=== PATIENT | female | born 1935 | race Caucasian/White ===

== ENCOUNTER 2017-02-09 11:14 | Emergency (ER) | payer OTHER ==
[~2017-02-09] VITALS: Ht 170.2 cm; Wt 74.0 kg
[2017-02-09 11:19] VITALS: PULSE 91; RESP 16; TEMP 98.2; O2SAT 96
[2017-02-09] MEDS ORDERED: METF1000 PO (11:40)
[2017-02-09] MEDS ORDERED: ATOR20TA15 PO (11:40)
[2017-02-09] MEDS ORDERED: LISI-515 PO (11:40)
--- NOTE | 2017-02-09 12:06 | PD ---
HPI Chief Complaint: Musculoskeletal Complaint Time Seen by Provider: 12:02 Travel History International Travel<30 days: No Contact w/Intl Traveler<30days: No Traveled to known affect area: No History of Present Illness HPI This 82-year-old female is complaining of pain in her left knee. She says that last week she went to bed feeling okay and she woke up one day with swelling and pain in her leg. The leg is been quite painful and hurts to walk on it. She's been taking Tylenol with minimal relief. She went to her doctor who ordered an x-ray. The x-ray showed degenerative changes and effusion. Her physician is supposed to be arranging orthopedic follow-up with the patient came today because she was having a lot of pain and discomfort especially when trying to walk. She is not aware of fever or chills. She has no history of arthritis PFSH Past Medical History High Cholesterol: Yes Diabetes: Yes Patient Takes Glucophage: Yes Hypertension: Yes Influenza Vaccination: No Past Surgical History Appendectomy: Yes Social History Alcohol Use: No Tobacco Use: No Substance Use: No Allergies-Medications (Allergen,Severity, Reaction): Coded Allergies: Penicillins (Verified Allergy, Unknown, Hives, 02/09/17) Sulfa (Sulfonamide Antibiotics) (Verified Allergy, Unknown, Rash, 02/09/17) egg (Verified Allergy, Unknown, Nausea/Vomiting, 02/09/17) ergocalciferol (vitamin D2) (Verified Allergy, Unknown, Rash, 02/09/17) iron (Verified Allergy, Unknown, Nausea/Vomiting, 02/09/17) Reported Meds & Prescriptions Reported Meds & Active Scripts Active Reported Metformin (Metformin HCl) 1,000 Mg Tab 1,000 Mg PO BIDPC With meals Lisinopril 20 Mg Tab 20 Mg PO DAILY Atorvastatin (Atorvastatin Calcium) 20 Mg Tab 20 Mg PO HS Review of Systems General / Constitutional: No: Fever, Chills Eyes: No: Diploplia, Blurred Vision HENT: No: Headaches, Vertigo Cardiovascular: No: Chest Pain or Discomfort Respiratory: No: Cough, Shortness of Breath Gastrointestinal: No: Vomiting, Diarrhea Genitourinary: No: Urgency, Frequency Musculoskeletal: Positive: Myalgias, Pain Skin: No Rash, No Itching Neurologic: No: Weakness, Dizziness Hematologic/Lymphatic: No: Easy Bruising Physical Exam Narrative GENERAL: Well-developed female SKIN: Focused skin assessment warm/dry. HEAD: Atraumatic. Normocephalic. EYES: Pupils equal and round. No scleral icterus. No injection or drainage. ENT: No nasal bleeding or discharge. Mucous membranes pink and moist. NECK: Trachea midline. No JVD. GASTROINTESTINAL: Abdomen soft, non-tender, nondistended. Hepatic and splenic margins not palpable. MUSCULOSKELETAL: No obvious deformities. No clubbing. No cyanosis. No edema. There is no swelling of the left knee. It is not red. It is not hot to palpation. There is a lot of pain with any attempt to move the knee. NEUROLOGICAL: Awake and alert. No obvious cranial nerve deficits. Motor grossly within normal limits. Normal speech. PSYCHIATRIC: Appropriate mood and affect; insight and judgment normal. Data Data Last Documented VS Vital Signs Date Time Temp Pulse Resp B/P Pulse Ox O2 Delivery O2 Flow Rate FiO2 02/09/17 12:50 80 16 161/72 96 02/09/17 11:19 98.2 Orders Complete Blood Count With Diff (02/09/17 12:03) Comprehensive Metabolic Panel (02/09/17 12:03) Prothrombin Time / Inr (Pt) (02/09/17 12:03) Act Partial Throm Time (Ptt) (02/09/17 12:03) C-Reactive Protein (Crp) (02/09/17 12:03) Westergren Sedimentation Rate (02/09/17 12:03) Ketorolac Inj (Toradol Inj) (02/09/17 12:15) Triamcinolone Inj (Kenalog-40 Inj) (02/09/17 12:15) Bupivacaine Pf 0.25% Inj (Marcaine Pf 0. (02/09/17 12:15) Bupivacaine Pf 0.25% Inj (Marcaine Pf 0. (02/09/17 12:30) Fluid Culture And Gram Stain (02/09/17 13:13) Synovial Fl Cell Count + Diff (02/09/17 13:17) Synovial Fluid Crystals (02/09/17 13:17) Labs Laboratory Tests Test 02/09/17 12:21 White Blood Count 8.9 TH/MM3 Red Blood Count 4.21 MIL/MM3 Hemoglobin 11.8 GM/DL Hematocrit 35.3 % Mean Corpuscular Volume 84.0 FL Mean Corpuscular Hemoglobin 28.1 PG Mean Corpuscular Hemoglobin 33.4 % Concent Red Cell Distribution Width 14.9 % Platelet Count 309 TH/MM3 Mean Platelet Volume 7.6 FL Neutrophils (%) (Auto) 72.9 % Lymphocytes (%) (Auto) 19.9 % Monocytes (%) (Auto) 5.0 % Eosinophils (%) (Auto) 1.7 % Basophils (%) (Auto) 0.5 % Neutrophils # (Auto) 6.5 TH/MM3 Lymphocytes # (Auto) 1.8 TH/MM3 Monocytes # (Auto) 0.4 TH/MM3 Eosinophils # (Auto) 0.2 TH/MM3 Basophils # (Auto) 0.0 TH/MM3 CBC Comment DIFF FINAL Differential Comment Erythrocyte Sedimentation Rate 32 mm/hr Prothrombin Time 10.6 SEC Prothromb Time International 1.0 RATIO Ratio Activated Partial 28.5 SEC Thromboplast Time Sodium Level 138 MEQ/L Potassium Level 3.6 MEQ/L Chloride Level 104 MEQ/L Carbon Dioxide Level 25.5 MEQ/L Anion Gap 9 MEQ/L Blood Urea Nitrogen 17 MG/DL Creatinine 0.97 MG/DL Estimat Glomerular Filtration 55 ML/MIN Rate Random Glucose 138 MG/DL Calcium Level 8.7 MG/DL Total Bilirubin 0.6 MG/DL Aspartate Amino Transf 23 U/L (AST/SGOT) Alanine Aminotransferase 28 U/L (ALT/SGPT) Alkaline Phosphatase 124 U/L Total Protein 7.3 GM/DL Albumin 3.3 GM/DL MDM Medical Decision Making Medical Screen Exam Complete: Yes Emergency Medical Condition: Yes Medical Record Reviewed: Yes Differential Diagnosis Differential includes arthritis flare, fracture, septic joint Narrative Course There is no fever, there is no warmth or erythema of the joint suggestive of sepsis. Patient is quite uncomfortable with pain. She did not report any relief with Toradol. White count is normal. INR is normal. Aspiration of the joint has been done. Patient be placed in a knee immobilizer and released Procedures Procedure Narrative Arthrocentesis was discussed with the patient and she was agreeable. The knee was anesthetized with Marcaine. An 18-gauge needle was inserted into the joint space and approximately 10 cc of fluid removed. It was slightly blood-tinged. 1 cc of Kenalog and 2 cc of Marcaine were instilled into the joint Diagnosis Primary Impression: Arthritis of left knee Additional Instructions: Take ibuprofen and/or Tylenol for pain, follow-up with orthopedic surgery Disposition: 01 DISCHARGE HOME Condition: Stable Ted Goldstein MD Feb 09, 2017 12:05
[2017-02-09] MEDS ORDERED: BUPIVACAINE HCL PF 0.25% 10 ML VIAL INFIL ONE (12:15)
[2017-02-09] MEDS ORDERED: TRIAMCINOLONE ACETONIDE 40 MG/ML VIAL I-ARTICULR ONE (12:15)
[2017-02-09] MEDS ORDERED: KETOROLAC TROMETHAMINE 30 MG/ML (IVP) VIAL IV PUSH ONE (12:15)
[2017-02-09] MEDS ORDERED: BUPIVACAINE HCL PF 0.25% 30 ML VIAL INFIL ONE (12:30)
[2017-02-09 12:38] LABS: AUTOMATED NEUTROPHIL # 6.5 TH/MM3 (1.8-7.7); BASOPHIL % 0.5 % (0.0-2.0); EOSINOPHIL # 0.2 TH/MM3 (0-0.4); EOSINOPHIL % 1.7 % (0.0-4.0); HEMATOCRIT 35.3 % (35.0-46.0); HEMO FLAGS DIFF FINAL; LYMPH % 19.9 % (9.0-44.0); LYMPHOCYTE # 1.8 TH/MM3 (1.0-4.8); MEAN CORPUSCULAR HEMOGLOBIN 28.1 PG (27.0-34.0); MEAN CORPUSCULAR HGB CONC 33.4 % (32.0-36.0); NEUT % 72.9 % (16.0-70.0); PLATELET COUNT 309 TH/MM3 (150-450); RED BLOOD COUNT 4.21 MIL/MM3 (4.00-5.30); RED CELL DISTRIBUTION WIDTH 14.9 % (11.6-17.2); WHITE BLOOD COUNT 8.9 TH/MM3 (4.0-11.0)
[2017-02-09 12:48] LABS: CHLORIDE 104 MEQ/L (98-107); POTASSIUM 3.6 MEQ/L (3.5-5.1); SODIUM (NA) 138 MEQ/L (136-145)
[2017-02-09 12:50] VITALS: BP 161/72; PULSE 80; RESP 16; O2SAT 96
[2017-02-09 12:51] LABS: ANION GAP 9 MEQ/L (5-15); APTT (PATIENT) 28.5 SEC (24.3-30.1); BICARBONATE 25.5 MEQ/L (21.0-32.0); PROTHROMBIN TIME - PATIENT 10.6 SEC (9.8-11.6)
[2017-02-09 12:52] LABS: BLOOD UREA NITROGEN 17 MG/DL (7-18)
[2017-02-09 12:54] LABS: ALT (GPT) 28 U/L (10-53); AST (GOT) 23 U/L (15-37)
[2017-02-09 12:55] LABS: GLOMERULAR FILTRATION RATE 55 ML/MIN (>89)
[2017-02-09 12:56] LABS: TOTAL BILIRUBIN ADULT 0.6 MG/DL (0.2-1.0)
[2017-02-09 12:57] LABS: ALKALINE PHOSPHATASE 124 U/L (45-117)
[2017-02-09 14:04] VITALS: RESP 18
[2017-02-09 15:07] LABS: WBC, SYNOVIAL FLUID 10 /MM3 (0-200)
== END 2017-02-09 14:05 | disposition home or self-care (01) ==
LOC: PHED 11:14
DX: M17.12 Unilateral primary osteoarthritis, left knee (principal); M25.462 Effusion, left knee; E11.9 Type 2 diabetes mellitus without complications; I10 Essential (primary) hypertension; E78.00 Pure hypercholesterolemia, unspecified; Z79.84 Long term (current) use of oral hypoglycemic drugs
CPT/HCPCS: 20610; 80053; 85025; 85610; 85652; 85730; 86140; 87070; 87205; 89051; 89060; 96374; 99284; J1885; J3301; L1830

== ENCOUNTER 2017-02-16 08:14 | Observation (INO) | payer OTHER ==
[~2017-02-16 08:14] MED LIST: ATOR20TA15 PO; LISI-515 PO; METF1000 PO
[2017-02-16 08:22] VITALS: BP 159/67; PULSE 81; RESP 12; TEMP 97.5; O2SAT 98
[2017-02-16] MEDS ORDERED: MOBI7.5T PO (08:33)
[2017-02-16] MEDS ORDERED: ACETAMINOPHEN/HYDROcodone 325 MG/10 MG TAB PO ONE (09:00)
--- NOTE | 2017-02-16 09:01 | PD ---
HPI . Knee pain Chief Complaint: Pain: Acute or Chronic Time Seen by Provider: 08:50 Travel History International Travel<30 days: No Contact w/Intl Traveler<30days: No Traveled to known affect area: No History of Present Illness HPI This patient presents with chief complaint of knee pain. Onset was 3 weeks ago. The onset was sudden. She states that she was fine when she went to bed one night and that she could not walk the next day because of knee pain. She states that both knees hurt the left is worse than the right. Pain is exacerbated by walking. He has been unrelieved by Tylenol, ibuprofen and no back. Pain has also been unrelieved by a steroid injection. She rates her pain 10/10. PFSH Past Medical History High Cholesterol: Yes Diabetes: Yes Patient Takes Glucophage: Yes Hypertension: Yes ?: Not Past Surgical History Appendectomy: Yes Social History Alcohol Use: No Tobacco Use: No Substance Use: No Allergies-Medications (Allergen,Severity, Reaction): Coded Allergies: Penicillins (Verified Allergy, Unknown, Hives, 02/16/17) Sulfa (Sulfonamide Antibiotics) (Verified Allergy, Unknown, Rash, 02/16/17) egg (Verified Allergy, Unknown, Nausea/Vomiting, 02/16/17) ergocalciferol (vitamin D2) (Verified Allergy, Unknown, Rash, 02/16/17) iron (Verified Allergy, Unknown, Nausea/Vomiting, 02/16/17) Reported Meds & Prescriptions Reported Meds & Active Scripts Active [place] (Hydrocodone-Acetaminophen) 5-325 mg Tab 1 Tab PO Q4H PRN Reported Mobic (Meloxicam) 7.5 Mg Tab 7.5 Mg PO DAILY Metformin (Metformin HCl) 1,000 Mg Tab 1,000 Mg PO BIDPC 1 IN THE AM AND 1/2 AT NIGHT With meals Lisinopril 20 Mg Tab 20 Mg PO DAILY Atorvastatin (Atorvastatin Calcium) 20 Mg Tab 20 Mg PO HS Review of Systems Except as stated in HPI: all other systems reviewed are Neg General / Constitutional: No: Fever, Chills Musculoskeletal: Positive: Arthralgias, Limited ROM Physical Exam Narrative GENERAL: Awake and alert and in no acute distress. SKIN: Warm and dry. No erythema of the skin of the knees. HEAD: Atraumatic. Normocephalic. EYES: Pupils equal and round. NECK: Trachea midline. CARDIOVASCULAR: Regular rate and rhythm. RESPIRATORY: No accessory muscle use. MUSCULOSKELETAL: "bony" knees. Diffusely tender. No effusion. NEUROLOGICAL: Awake and alert. No obvious cranial nerve deficits. Motor grossly within normal limits. Normal speech. PSYCHIATRIC: Appropriate mood and affect; insight and judgment normal. Data Data Last Documented VS Vital Signs Date Time Temp Pulse Resp B/P (MAP) Pulse Ox O2 Delivery O2 Flow Rate FiO2 02/16/17 10:30 77 18 143/64 (90) 97 Room Air 02/16/17 08:22 97.5 Orders Orders Acetamin-Hydrocod 325-10 Mg ([place] 10-32 (02/16/17 09:00) Complete Blood Count With Diff (02/16/17 10:19) Basic Metabolic Panel (Bmp) (02/16/17 10:19) Westergren Sedimentation Rate (02/16/17 10:19) C-Reactive Protein (Crp) (02/16/17 10:19) Labs Laboratory Tests Test 02/16/17 10:36 White Blood Count 14.0 TH/MM3 Red Blood Count 3.99 MIL/MM3 Hemoglobin 11.4 GM/DL Hematocrit 34.1 % Mean Corpuscular Volume 85.5 FL Mean Corpuscular Hemoglobin 28.5 PG Mean Corpuscular Hemoglobin Concent 33.3 % Red Cell Distribution Width 15.6 % Platelet Count 369 TH/MM3 Mean Platelet Volume 7.8 FL Neutrophils (%) (Auto) 71.5 % Lymphocytes (%) (Auto) 20.6 % Monocytes (%) (Auto) 6.1 % Eosinophils (%) (Auto) 1.3 % Basophils (%) (Auto) 0.5 % Neutrophils # (Auto) 10.0 TH/MM3 Lymphocytes # (Auto) 2.9 TH/MM3 Monocytes # (Auto) 0.9 TH/MM3 Eosinophils # (Auto) 0.2 TH/MM3 Basophils # (Auto) 0.1 TH/MM3 CBC Comment DIFF FINAL Differential Comment MDM Medical Decision Making Medical Screen Exam Complete: Yes Emergency Medical Condition: Yes Medical Record Reviewed: Yes (this patient had arthrocentesis of her left knee done on 02/09. The fluid had 10 white cells and no crystals. She has also had outpatient x-rays which showed degenerative changes.) Differential Diagnosis Differential diagnosis of joint pain includes but is not limited to arthritis, gout, sprain/strain, fracture, dislocation Narrative Course This patient presents with bilateral knee pain, left worse than right. She has already been adequately evaluated for her knee pain. She has arthritis. I will give her a dose of [place]. This patient is still unable to stand following [place]. Case management was consult. This patient does meet criteria for admission to observation. Diagnosis Primary Impression: Bilateral knee pain Qualified Codes: M25.561 - Pain in right knee; M25.562 - Pain in left knee Additional Impression: Degenerative arthritis Qualified Codes: M17.0 - Bilateral primary osteoarthritis of knee Admitting Information Admitting Physician Requests: Observation Patient Instructions: Arthritis (ED), General Instructions, Narcotic given in the ED Additional Instructions: Continue the meloxicam. Add [place]. See your doctor within the next couple of days. Med/Other Pt SpecificInfo: Prescription(s) given Condition: Stable Stephanie Argueta MD Feb 16, 2017 09:01
[2017-02-16] MEDS ORDERED: NORC5TAB PO (09:19)
[2017-02-16 10:30] VITALS: BP 143/64; PULSE 77; RESP 18; O2SAT 97
[2017-02-16 10:50] LABS: BASOPHIL # 0.1 TH/MM3 (0-0.2); BASOPHIL % 0.5 % (0.0-2.0); EOSINOPHIL # 0.2 TH/MM3 (0-0.4); EOSINOPHIL % 1.3 % (0.0-4.0); HEMATOCRIT 34.1 % (35.0-46.0); HEMO FLAGS DIFF FINAL; LYMPH % 20.6 % (9.0-44.0); LYMPHOCYTE # 2.9 TH/MM3 (1.0-4.8); MEAN CELL VOLUME 85.5 FL (80.0-100.0); MEAN CORPUSCULAR HEMOGLOBIN 28.5 PG (27.0-34.0); MEAN CORPUSCULAR HGB CONC 33.3 % (32.0-36.0); MONO % 6.1 % (0.0-8.0); NEUT % 71.5 % (16.0-70.0); PLATELET COUNT 369 TH/MM3 (150-450); RED BLOOD COUNT 3.99 MIL/MM3 (4.00-5.30); RED CELL DISTRIBUTION WIDTH 15.6 % (11.6-17.2)
[2017-02-16 11:13] LABS: ANION GAP 6 MEQ/L (5-15); BICARBONATE 23.8 MEQ/L (21.0-32.0); BLOOD UREA NITROGEN 26 MG/DL (7-18); CHLORIDE 110 MEQ/L (98-107); GLOMERULAR FILTRATION RATE 57 ML/MIN (>89); POTASSIUM 4.4 MEQ/L (3.5-5.1); SODIUM (NA) 140 MEQ/L (136-145)
--- NOTE | 2017-02-16 11:37 | HHI.HP ---
[facility] Service [facility] Primary Care Physician Santana Neely MD Admission Diagnosis intractable knee pain Diagnoses: Chief Complaint: Bilateral knee pain Travel History International Travel<30 Days: No Contact w/Intl Traveler <30 Da: No Traveled to Known Affected Are: No History of Present Illness Ms. Parish is a pleasant 82-year-old female with a history of diabetes , hyperlipidemia, hypertension who presents to the emergency department on 2016 due to sharp knee pain bilaterally. About 2 weeks ago, patient experienced sudden onset of left-sided knee pain. Over time she started having right-sided knee pain as well. She reports no swelling of the knees, nor redness, no fever or chills. She saw her primary care doctor who obtained an x- ray which showed possible fluid. Patient was given Tylenol for symptomatic treatment. Later on she also received intra-articular steroid in her left knee. She has also tried NSAIDs including Motrin and meloxicam. None of these conservative management relieved her symptoms which prompted her to seek medical attention today. Additionally she feels her feet are numb. Patient denies any chest pain, shortness of breath, fever or chills. Denies any changes in bowel habits. However recently she did have frequent urination but no dysuria or hematuria. She has never had gout. Review of Systems Except as stated in HPI: all other systems reviewed are Neg Past Family Social History Past Medical History Hyperlipidemia Hypertension Diabetes mellitus Past Surgical History Appendectomy Reported Medications [place] (Hydrocodone-Acetaminophen) 5-325 mg Tab 1 Tab PO Q4H PRN Reported Mobic (Meloxicam) 7.5 Mg Tab 7.5 Mg PO DAILY Metformin (Metformin HCl) 1,000 Mg Tab 1,000 Mg PO BIDPC 1 IN THE AM AND 1/2 AT NIGHT With meals Lisinopril 20 Mg Tab 20 Mg PO DAILY Atorvastatin (Atorvastatin Calcium) 20 Mg Tab 20 Mg PO HS Allergies: Coded Allergies: Penicillins (Verified Allergy, Unknown, Hives, 02/16/17) Sulfa (Sulfonamide Antibiotics) (Verified Allergy, Unknown, Rash, 02/16/17) egg (Verified Allergy, Unknown, Nausea/Vomiting, 02/16/17) ergocalciferol (vitamin D2) (Verified Allergy, Unknown, Rash, 02/16/17) iron (Verified Allergy, Unknown, Nausea/Vomiting, 02/16/17) Family History No family history of Alzheimer's or Parkinson's. Social History Patient denies using alcohol, tobacco or illicit drugs. Physical Exam Vital Signs Vital Signs Date Time Temp Pulse Resp B/P (MAP) Pulse Ox O2 Delivery O2 Flow Rate FiO2 02/16/17 10:30 77 18 143/64 (90) 97 Room Air 02/16/17 08:22 97.5 81 12 159/67 (97) 98 Physical Exam GENERAL: This is a well-nourished, well-developed patient, in no apparent distress. SKIN: No rashes, ecchymoses or lesions. Warm and dry. HEAD: Atraumatic. Normocephalic. No temporal or scalp tenderness. EYES: Pupils equal round and reactive. No injection or drainage. ENT: Nose without bleeding, purulent drainage or septal hematoma. Airway patent. NECK: Trachea midline. No lymphadenopathy. Supple, nontender, no meningeal signs. CARDIOVASCULAR: Regular rate and rhythm without murmurs, gallops, or rubs. No JVD. RESPIRATORY: Clear to auscultation. Breath sounds equal bilaterally. No wheezes , rales, or rhonchi. GASTROINTESTINAL: Abdomen soft, non-tender, nondistended. No guarding. MUSCULOSKELETAL: Extremities without clubbing, cyanosis, or edema. No erythema around knees. Excruciating pain on both active and passive range of motion of the knees. Pain on palpation around the patella on the left. NEUROLOGICAL: Awake and alert. Cranial nerves II through XII intact. No focal neurological deficits. Normal speech. Laboratory Laboratory Tests Test 02/16/17 10:36 White Blood Count 14.0 Red Blood Count 3.99 Hemoglobin 11.4 Hematocrit 34.1 Mean Corpuscular Volume 85.5 Mean Corpuscular Hemoglobin 28.5 Mean Corpuscular Hemoglobin Concent 33.3 Red Cell Distribution Width 15.6 Platelet Count 369 Mean Platelet Volume 7.8 Neutrophils (%) (Auto) 71.5 Lymphocytes (%) (Auto) 20.6 Monocytes (%) (Auto) 6.1 Eosinophils (%) (Auto) 1.3 Basophils (%) (Auto) 0.5 Neutrophils # (Auto) 10.0 Lymphocytes # (Auto) 2.9 Monocytes # (Auto) 0.9 Eosinophils # (Auto) 0.2 Basophils # (Auto) 0.1 CBC Comment DIFF FINAL Differential Comment Blood Urea Nitrogen 26 Creatinine 0.93 Random Glucose 141 Calcium Level 9.1 Sodium Level 140 Potassium Level 4.4 Chloride Level 110 Carbon Dioxide Level 23.8 Anion Gap 6 Estimat Glomerular Filtration Rate 57 C-Reactive Protein LESS THAN 0.29 Result Diagram: 02/16/17 1036 02/16/17 1036 Caprini VTE Risk Assessment Caprini VTE Risk Assessment: Mod/High Risk (score >= 2) Caprini Risk Assessment Model Point Value = 1 Point Value = 2 Point Value = 3 Point Value = 5 Age 41-60 Minor surgery BMI > 25 kg/m2 Swollen legs Varicose veins or History of unexplained or recurrent spontaneous Oral contraceptives or hormone replacement Sepsis (< 1 month) Serious lung disease, including pneumonia (< 1 month) Abnormal pulmonary function Acute myocardial infarction Congestive heart failure (< 1 month) History of inflammatory bowel disease Medical patient at bed rest Age 61-74 Arthroscopic surgery Major open surgery (> 45 min) Laparoscopic surgery (> 45 min) Malignancy Confined to bed (> 72 hours) Immobilizing plaster cast Central venous access Age >= 75 History of VTE Family history of VTE Factor V Leiden Prothrombin [id number] Lupus anticoagulant Anticardiolipin antibodies Elevated serum homocysteine Heparin-induced thrombocytopenia Other congenital or acquired thrombophilia Stroke (< 1 month) Elective arthroplasty Hip, pelvis, or leg fracture Acute spinal cord injury (< 1 month) Prophylaxis Regimen Total Risk Factor Score Risk Level Prophylaxis Regimen 0-1 Low Early ambulation 2 Moderate Order ONE of the following: *Sequential Compression Device (SCD) *Heparin 5000 units SQ BID 3-4 Higher Order ONE of the following medications: *Heparin 5000 units SQ TID *Enoxaparin/Lovenox 40 mg SQ daily (WT < 150 kg, CrCl > 30 mL/min) *Enoxaparin/Lovenox 30 mg SQ daily (WT < 150 kg, CrCl > 10-29 mL/min) *Enoxaparin/Lovenox 30 mg SQ BID (WT < 150 kg, CrCl > 30 mL/min) AND/OR *Sequential Compression Device (SCD) 5 or more Highest Order ONE of the following medications: *Heparin 5000 units SQ TID (Preferred with Epidurals) *Enoxaparin/Lovenox 40 mg SQ daily (WT < 150 kg, CrCl > 30 mL/min) *Enoxaparin/Lovenox 30 mg SQ daily (WT < 150 kg, CrCl > 10-29 mL/min) *Enoxaparin/Lovenox 30 mg SQ BID (WT < 150 kg, CrCl > 30 mL/min) AND *Sequential Compression Device (SCD) Assessment and Plan Problem List: (1) Hyperlipidemia ICD Code: E78.5 - Hyperlipidemia, unspecified (2) Hypertension ICD Code: I10 - Essential (primary) hypertension (3) Diabetes mellitus ICD Code: E11.9 - Type 2 diabetes mellitus without complications (4) Bilateral knee pain ICD Code: M25.561 - Pain in right knee; M25.562 - Pain in left knee Status: Acute Assessment and Plan Ms. Parish is a pleasant 82-year-old female with a history of hyperlipidemia, hypertension, diabetes mellitus who presents to the emergency department today due to 2 week duration of bilateral knee pain. No erythema, swelling. Knee pain started suddenly. - Bilateral knee pain - Probably due to osteoarthritis. - We'll manage pain with Tylenol, Percocet 5-325 every 6 hours when necessary , Dilaudid 0.5 mg 4 hours for breakthrough. - Orthopedic consultation pending. - Bowel regimen PRN. - Diabetes mellitus - Patient takes metformin at home which we'll hold for now. - We'll keep low sliding scale insulin on board. If needed consider long- acting insulin at bedtime. - Hypertension - continue lisinopril 20 mg by mouth daily - Hyperlipidemia - continue atorvastatin 20 mg by mouth daily at bedtime. Full code. Lovenox Problem Qualifiers (1) Bilateral knee pain: Qualified Codes: M25.561 - Pain in right knee; M25.562 - Pain in left knee Sandro Urrutia DO Feb 16, 2017 11:37
[2017-02-16] MEDS ORDERED: NALOXONE HCL 0.4 MG/ML AMP IV PRN (11:45)
[2017-02-16] MEDS ORDERED: ACETAMINOPHEN 325 MG TAB PO PRN (11:45)
[2017-02-16] MEDS ORDERED: BISACODYL 10 MG SUPP RECTAL PRN (11:45)
[2017-02-16] MEDS ORDERED: MAGNESIUM HYDROXIDE SUSP 30 ML CUP PO PRN (11:45)
[2017-02-16] MEDS ORDERED: LACTULOSE SYRUP 20 GM/30 ML CUP PO PRN (11:45)
[2017-02-16] MEDS ORDERED: SODIUM CHLORIDE 0.9% FLUSH 10 ML FLUSH IV FLUSH PRN (11:45)
[2017-02-16] MEDS ORDERED: SENNOSIDES 8.6 MG TAB PO PRN (11:45)
[2017-02-16] MEDS ORDERED: ONDANSETRON HCL 4 MG/2 ML VIAL IVP PRN (11:45)
[2017-02-16] MEDS ORDERED: HYDROmorphone HCL PF 1 MG/ML VIAL IV PUSH PRN (11:45)
[2017-02-16] MEDS ORDERED: DEXTROSE 50% IN WATER 50 ML VIAL(D50) IV PRN (12:30)
[2017-02-16] MEDS ORDERED: GLUCAGON 1 MG/ML VIAL OTHER PRN (12:30)
[2017-02-16 15:41] LABS: BACTERIA, URINE MANY /hpf; BLOOD, URINE TRACE (NEG); COMMENT (UR) CULTURE INDICATED; CULTURE IF INDICATED CULTURE INDICATED; GLUCOSE,URINE NEG (NEG); KETONE, URINE NEG (NEG); NITRITE,URINE POS (NEG); PH, URINE 5.5 (5.0-8.5); SQUAMOUS EPITHELIAL CELL URINE 1 /hpf (0-5); URINE COLOR YELLOW (YELLW/STRAW)
[2017-02-16] MEDS: ENOXAPARIN SODIUM 40 MG/0.4 ML SYRINGE SQ SCH (16:00)
[2017-02-16] MEDS: INSULIN ASPART SUPPLEMENTAL SCALE SQ SCH ×2 (16:00→21:00)
[2017-02-16] MEDS: oxyCODONE/ACETAMINOPHEN 5 MG/325 MG TAB PO PRN (16:49)
--- NOTE | 2017-02-16 18:08 | RADRPT ---
EXAM DATE/TIME: 02/16/2017 15:22 CORRECTION Corrected on: February 16, 2017; [facility] COMPARISON: No previous studies available for comparison. INDICATIONS : Knee pain for 3 weeks. MEDICAL HISTORY : Hypertension. Diabetes mellitus type 2. SURGICAL HISTORY : Plate in elbow. ENCOUNTER: Initial ACUITY: 3 weeks PAIN SCORE: 5/10 LOCATION: Left knee. TECHNIQUE: Multiplanar, multisequence MRI examination was performed without contrast. FINDINGS: CRUCIATE LIGAMENTS: ACL and PCL are intact. MENISCI: There is a meniscal tear involving the posterior horn of the medial meniscus extending to inferior leung rface. The lateral meniscus appears grossly intact. COLLATERAL LIGAMENTS: MCL and LCL complexes are intact. BONE/CARTILAGE: Prominent bone marrow edema with fracture involving the posterior lateral femoral condyle. The fractu re of the posterior lateral femoral condyle appears to be nondisplaced. There is also diffuse bone ma rrow edema involving the lateral tibial plateau with most likely microfracture. Possible osteochondri tis dissecans along the articular surface of the lateral tibial plateau versus a cartilaginous defec t involving the articular surface.. There is bone marrow edema involving the inferior body of the pat sole. This is most likely a bone contusion. MISCELLANEOUS: Moderate joint effusion. Nonspecific edema in the surrounding soft tissues at the level of the knee j oint. CONCLUSION: 1. Nondisplaced fracture with surrounding bone marrow edema involving the posterior lateral femoral c ondyle. 2. Diffuse bone marrow edema involving the lateral tibial plateau with probable microfractures. 3. Moderate joint effusion. 4. Oblique tear involving the posterior horn of the medial meniscus. Armando Newton MD on February 16, 2017 at 18:02 Board Certified Radiologist. This report was verified electronically. Armando Newton MD on February 16, 2017 at 18:14 Board Certified Radiologist. This report was verified electronically.
--- NOTE | 2017-02-16 18:14 | RADRPT ---
EXAM DATE/TIME: 02/16/2017 15:45 [facility] COMPARISON: No previous studies available for comparison. INDICATIONS : Knee pain for 3 weeks. MEDICAL HISTORY : Hypertension. Diabetes mellitus type 2. SURGICAL HISTORY : Plate in elbow. ENCOUNTER: Initial ACUITY: 3 weeks PAIN SCORE: 5/10 LOCATION: Right knee. TECHNIQUE: Multiplanar, multisequence MRI examination was performed without contrast. FINDINGS: CRUCIATE LIGAMENTS: ACL and PCL are intact. MENISCI: There is oblique tear through the posterior horn of the medial meniscus extending down to the inferio r surface. The lateral meniscus appears to be grossly intact. COLLATERAL LIGAMENTS: MCL and LCL complexes are intact. BONE/CARTILAGE: Nondisplaced fracture with bone marrow edema involving the lateral femoral condyle. Fracture is just above the articulating surface. There is bone marrow edema in the lateral tibial plateau with a carti laginous defect along the articulating surface of the lateral tibial plateau. There appears to be a p rominent bone marrow contusion and/or microfracture involving the mid to lower body of the patella. MISCELLANEOUS: Moderate joint effusion. Nonspecific soft tissue swelling in the soft tissues around the knee joint. The quadriceps tendon and patellar tendon are grossly intact. CONCLUSION: 1. Nondisplaced fracture with bone marrow edema involving the lateral femoral condyle. 2. Bone marrow edema involving the lateral tibial plateau with cartilaginous defect along the articul ar surface. 3. Prominent bone marrow bruising and/or microfracture involving the mid to lower body of the patella . 4. Oblique tear involving the posterior horn medial meniscus. 5. Moderate joint effusion. Armando Newton MD on February 16, 2017 at 18:07 Board Certified Radiologist. This report was verified electronically.
[2017-02-16 20:42] VITALS: BP 160/72; PULSE 80; RESP 18; TEMP 98; O2SAT 95
[2017-02-16] MEDS: DOCUSATE SODIUM 50 MG/SENNA 8.6 MG TAB PO SCH (22:51)
[2017-02-16] MEDS: SODIUM CHLORIDE 0.9% FLUSH 10 ML FLUSH IV FLUSH SCH (22:52)
[2017-02-16] MEDS: ATORVASTATIN 20 MG TAB PO SCH (22:52)
[2017-02-17 00:17] VITALS: BP 180/77; PULSE 71; RESP 18; TEMP 98.3; O2SAT 95
[2017-02-17 04:47] VITALS: BP 196/77; PULSE 73; RESP 16; TEMP 98.2; O2SAT 95
[2017-02-17] MEDS: oxyCODONE/ACETAMINOPHEN 5 MG/325 MG TAB PO PRN ×4 (04:56→22:49)
[2017-02-17] MEDS: ENALAPRILAT 2.5 MG/2 ML VIAL IV PUSH PRN ×2 (05:33→21:59)
[2017-02-17] MEDS: INSULIN ASPART SUPPLEMENTAL SCALE SQ SCH ×4 (07:00→22:05)
[2017-02-17 08:36] VITALS: BP 181/79; PULSE 71; RESP 18; TEMP 97.7; O2SAT 98
[2017-02-17] MEDS ORDERED: LISINOPRIL 20 MG TAB PO SCH (09:00)
--- NOTE | 2017-02-17 09:51 | HHI.PR ---
Subjective Remarks Follow-up for bilateral knee pain. Patient seen with her daughter at bedside. The patient woke up with knee pain about 2 weeks ago, no injury. She states the pain in her knees is manageable until she tries to move them. She does state that the Percocet helps some, but the pain does persist. She states she was seen by orthopedics, Dr. Tomlinson, earlier who told her he was going to start her on arthritis medication and recommended she get out of bed to the chair. She states that she has been holding her urine and more recently because his been harder to move. She does state that she has DME at home, but she is no longer able to get out of bed without assistance secondary to knee pain. No improvement with recent intra-articular steroid injection. Agreeable to SNF placement. Objective Vitals Vital Signs Date Time Temp Pulse Resp B/P (MAP) Pulse Ox O2 Delivery O2 Flow Rate FiO2 02/17/17 08:36 97.7 71 18 181/79 (113) 98 02/17/17 05:37 18 02/17/17 04:47 98.2 73 16 196/77 (116) 95 02/17/17 00:17 98.3 71 18 180/77 (111) 95 02/16/17 20:42 98.0 80 18 160/72 (101) 95 02/16/17 12:40 02/16/17 10:30 77 18 143/64 (90) 97 Room Air Result Diagram: 02/16/17 1036 02/16/17 1036 Imaging Last Impressions Knee MRI 02/16/17 0000 Signed Impressions: Service Date/Time: Thursday, February 16, 2017 15:45 - CONCLUSION: 1. Nondisplaced fracture with bone marrow edema involving the lateral femoral condyle. 2. Bone marrow edema involving the lateral tibial plateau with cartilaginous defect along the articular surface. 3. Prominent bone marrow bruising and/or microfracture involving the mid to lower body of the patella. 4. Oblique tear involving the posterior horn medial meniscus. 5. Moderate joint effusion. Armando Newton MD Objective Remarks GENERAL: Well-developed well-nourished. In no acute distress. SKIN: Warm and dry. No lesions noted. HEENT: Normocephalic. Pupils equal and round. Mucous membranes pink and moist. CARDIOVASCULAR: Regular rate and rhythm. No murmur appreciated. RESPIRATORY: No accessory muscle use. Clear to auscultation. Breath sounds equal bilaterally. GASTROINTESTINAL: Abdomen soft, non-tender, nondistended. Bowel sounds x4. MUSCULOSKELETAL: Severe bilateral knee pain with minimal ROM. No significant effusion on exam. No clubbing or cyanosis. No edema. NEUROLOGICAL: Awake and alert. No focal neurological deficits. Moves upper and lower extremities spontaneously. Normal speech. PSYCHIATRIC: Appropriate mood and affect; insight and judgment normal. A/P Problem List: (1) Hyperlipidemia ICD Code: E78.5 - Hyperlipidemia, unspecified Status: Chronic (2) Hypertension ICD Code: I10 - Essential (primary) hypertension Status: Acute (3) Diabetes mellitus ICD Code: E11.9 - Type 2 diabetes mellitus without complications Status: Chronic (4) Bilateral knee pain ICD Code: M25.561 - Pain in right knee; M25.562 - Pain in left knee Status: Acute Assessment and Plan 82-year-old female with a history of hyperlipidemia, hypertension, diabetes mellitus who presented due to 2 week duration of bilateral knee pain. No erythema, swelling. Knee pain started suddenly. - Bilateral knee pain Reviewed: Lateral knee MRI show nondisplaced fractures of the lateral femoral condyles; joint effusions, bone marrow edema, microfractures, meniscal tears. - Pain management, increase Percocet 5-325 2 every 4 hours as needed, continue Dilaudid 0.5 mg 4 hours for breakthrough. - Orthopedics consulted, appreciate input, activity per orthopedic. - Bowel regimen PRN. - PT consulted - Anticipate patient will need rehabilitation placement, case management consulted - UTI - UA with evidence of UTI. WBC 14. Afebrile. - Start Macrobid and follow-up urine culture - Diabetes mellitus - Patient takes metformin at home which we'll hold for now. - We'll keep low sliding scale insulin on board. - Hypertension - chronic, uncontrolled/accelerated - Increase lisinopril to 40 mg daily - IV Vasotec as needed - Monitor and adjust medications as needed - Hyperlipidemia - continue atorvastatin 20 mg by mouth daily at bedtime. DVT prophylaxis - Lovenox Discharge Planning Follow-up orthopedic and PT recommendations. Follow-up urine culture. Monitor BP. Plan for discharge to SNF when improved. Problem Qualifiers (1) Hyperlipidemia: Qualified Codes: E78.5 - Hyperlipidemia, unspecified (2) Hypertension: Qualified Codes: I10 - Essential (primary) hypertension (3) Diabetes mellitus: (4) Bilateral knee pain: Qualified Codes: M25.561 - Pain in right knee; M25.562 - Pain in left knee Omid Lovett Feb 17, 2017 09:51
--- NOTE | 2017-02-17 10:59 | MB ---
cc: CIRILO MULLIGAN DATE OF CONSULTATION 02/17/[address] De La O REASON FOR CONSULTATION Bilateral knee pain with inability to ambulate. HISTORY This patient is an 82-year-old female with a known history of diabetes mellitus, hyperlipidemia and hypertension. The patient noted approximately two weeks ago she began having difficulty walking. She fell she "slept wrong." She has had such progressive discomfort that she saw her primary care physician. Apparently x-rays were ordered and she was advised to seek follow up with an orthopedic physician. The patient has had such difficulty with ambulation, she presented to the emergency room. She denies any fevers or chills or redness. She is having difficulty with ambulation. She tried Motrin and meloxicam apparently without significant help. She was admitted to the medical service and I have been asked see her in consultation regarding the same. PAST MEDICAL HISTORY 1. Hypertension 2. Hyperlipidemia 3. Diabetes mellitus PAST SURGICAL HISTORY Appendectomy. MEDICATIONS 1. Walters 2. Mobic 3. Metformin 4. Lisinopril 5. Atorvastatin ALLERGIES PENICILLIN, SULFA, EGG, VITAMIN D2 AND IRON. FAMILY HISTORY No history of Alzheimer's or Parkinson's disease. SOCIAL HISTORY Denies alcohol, tobacco or illicit drugs. REVIEW OF SYSTEMS Negative except for HPI. PHYSICAL EXAMINATION This is an alert cooperative female. She is seen with her daughter. She indicates she has been in bed now for almost two weeks. EXTREMITIES: Examination of the lower extremity, hip and ankle examination is normal. Both knees show a 10 degrees flexion contracture, flexes to about 70 degrees, pain with range of motion. Mild swelling of both knees. Mild effusion. No instability. Strength appears to be normal. Dorsalis pedis 1+. MRI scan of both knees are very symmetrical indicating evidence of subchondral fracture of the lateral tibial plateau likely insufficiency fracture related to osteoarthritis. There is evidence on the left knee of a linear fracture through the posterior femoral condyle without displacement. Some cartilaginous changes were seen. There is evidence of a degenerative posterior medial meniscus tear of both knees. IMPRESSION 1. Ostearthritis both knees. 2. Fatigue fracture bilateral lateral tibial plateau. 3. Degenerative tear medial meniscus, bilateral 4. Fracture left posterior lateral femoral condyle PLAN This is an usual presentation. Likely this is degenerative in nature. The patient indicates that she has not had a traumatic injury. I find it hard to believe that she did not have some element of a traumatic injury. At any rate, surgical treatment is not recommended at this time. A range of motion brace of the left knee is recommended. The right knee should be treated with range of motion as tolerated. I recommend that she take diclofenac 75 mg p.o. b.i.d. I am resistant on giving cortisone injections in light of a fracture and history of diabetes mellitus. I will allow this patient to be partial weightbearing with a walker and I encouraged her to be bed to chair in ambulation. This patient is at risk, and the surgical treatment if this displaces. This patient is probably going to be prior to be candidate for rehabilitation. I doubt she will be able to live alone at home and I do not see this changing in the next 24-48 hours. I will follow her the office in about three weeks or so. Repeat x-ray will be obtained at that time. This patient may become a candidate for knee replacement surgery if we find that the degenerative condition does not respond to conservative care. MD ELIZABETH Vargas/IRIS /9:32 AM /10:42 AM AWA
[2017-02-17] MEDS: LISINOPRIL 20 MG TAB PO SCH (11:19)
[2017-02-17] MEDS: DOCUSATE SODIUM 50 MG/SENNA 8.6 MG TAB PO SCH ×2 (11:19→21:59)
[2017-02-17] MEDS: SODIUM CHLORIDE 0.9% FLUSH 10 ML FLUSH IV FLUSH SCH ×2 (11:20→21:59)
[2017-02-17 12:29] VITALS: BP 171/72; PULSE 67; RESP 20; TEMP 98.6; O2SAT 97
[2017-02-17] MEDS: amLODIPine BESYLATE 5 MG TAB PO SCH (14:56)
[2017-02-17] MEDS: NITROFURANTOIN MONOHYD MACROCR 100 MG CAP PO SCH ×2 (14:56→18:00)
[2017-02-17] MEDS: ENOXAPARIN SODIUM 40 MG/0.4 ML SYRINGE SQ SCH (14:59)
[2017-02-17] MEDS: DICLOFENAC SODIUM 75 MG DELAYED RELEASE TAB PO SCH ×2 (15:40→22:49)
[2017-02-17 16:17] VITALS: BP 163/71; PULSE 72; RESP 23; TEMP 97.9; O2SAT 95
[2017-02-17 20:18] VITALS: BP 162/73; PULSE 70; RESP 18; TEMP 98.2; O2SAT 95
[2017-02-17 21:03] LABS: BASOPHIL # 0.1 TH/MM3 (0-0.2); BASOPHIL % 0.5 % (0.0-2.0); EOSINOPHIL # 0.3 TH/MM3 (0-0.4); EOSINOPHIL % 2.2 % (0.0-4.0); HEMATOCRIT 34.5 % (35.0-46.0); HEMO FLAGS DIFF FINAL; LYMPH % 24.4 % (9.0-44.0); LYMPHOCYTE # 2.9 TH/MM3 (1.0-4.8); MEAN CELL VOLUME 86.5 FL (80.0-100.0); MEAN CORPUSCULAR HEMOGLOBIN 27.8 PG (27.0-34.0); MEAN CORPUSCULAR HGB CONC 32.1 % (32.0-36.0); MONO % 6.6 % (0.0-8.0); NEUT % 66.3 % (16.0-70.0); PLATELET COUNT 343 TH/MM3 (150-450); RED BLOOD COUNT 3.99 MIL/MM3 (4.00-5.30); RED CELL DISTRIBUTION WIDTH 16.2 % (11.6-17.2); WHITE BLOOD COUNT 12.1 TH/MM3 (4.0-11.0)
[2017-02-17 21:07] LABS: ANION GAP 8 MEQ/L (5-15); AST (GOT) 15 U/L (15-37); BICARBONATE 22.7 MEQ/L (21.0-32.0); BLOOD UREA NITROGEN 20 MG/DL (7-18); CHLORIDE 105 MEQ/L (98-107); GLOMERULAR FILTRATION RATE 48 ML/MIN (>89); POTASSIUM 4.6 MEQ/L (3.5-5.1); SODIUM (NA) 136 MEQ/L (136-145)
[2017-02-17 21:18] LABS: ALKALINE PHOSPHATASE 111 U/L (45-117); ALT (GPT) 24 U/L (10-53); TOTAL BILIRUBIN ADULT 0.5 MG/DL (0.2-1.0)
[2017-02-17] MEDS: ATORVASTATIN 20 MG TAB PO SCH (21:59)
[2017-02-17] MEDS: FAMOTIDINE 20 MG TAB PO SCH (21:59)
[2017-02-18 02:59] VITALS: BP 138/63; PULSE 65; RESP 18; TEMP 98.4; O2SAT 97
[2017-02-18] MEDS: INSULIN ASPART SUPPLEMENTAL SCALE SQ SCH ×2 (06:31→14:00)
[2017-02-18 08:35] VITALS: BP 144/86; PULSE 67; RESP 16; TEMP 98.1; O2SAT 97
[2017-02-18] MEDS: NITROFURANTOIN MONOHYD MACROCR 100 MG CAP PO SCH (11:10)
[2017-02-18] MEDS: LISINOPRIL 20 MG TAB PO SCH (11:12)
[2017-02-18] MEDS: amLODIPine BESYLATE 5 MG TAB PO SCH (11:14)
[2017-02-18] MEDS: oxyCODONE/ACETAMINOPHEN 5 MG/325 MG TAB PO PRN (11:14)
[2017-02-18] MEDS: FAMOTIDINE 20 MG TAB PO SCH (11:15)
[2017-02-18] MEDS: SODIUM CHLORIDE 0.9% FLUSH 10 ML FLUSH IV FLUSH SCH (11:17)
[2017-02-18] MEDS: DOCUSATE SODIUM 50 MG/SENNA 8.6 MG TAB PO SCH (11:28)
[2017-02-18] MEDS: DICLOFENAC SODIUM 75 MG DELAYED RELEASE TAB PO SCH (11:29)
[2017-02-18] MEDS ORDERED: CIPROFLOXACIN 250 MG TAB PO SCH (11:45)
--- NOTE | 2017-02-18 11:55 | HHI.PR ---
Subjective Remarks Follow-up for bilateral knee pain/fractures. The patient reports that she worked with PT yesterday. She states the Percocet is helping the pain. Denies any urinary symptoms. She states her blood pressure was high last night, but has been doing better today. Awaiting insurance authorization for SNF. Objective Vitals Vital Signs Date Time Temp Pulse Resp B/P (MAP) Pulse Ox O2 Delivery O2 Flow Rate FiO2 02/18/17 08:35 98.1 67 16 144/86 (105) 97 02/18/17 02:59 98.4 65 18 138/63 (88) 97 02/17/17 23:25 18 02/17/17 20:18 98.2 70 18 162/73 (102) 95 02/17/17 16:17 97.9 72 23 163/71 (101) 95 02/17/17 12:29 98.6 67 20 171/72 (105) 97 Result Diagram: 02/17/17201902/17/172019 Imaging Last Impressions Knee MRI 02/16/17 0000 Signed Impressions: Service Date/Time: Thursday, February 16, 2017 15:45 - CONCLUSION: 1. Nondisplaced fracture with bone marrow edema involving the lateral femoral condyle. 2. Bone marrow edema involving the lateral tibial plateau with cartilaginous defect along the articular surface. 3. Prominent bone marrow bruising and/or microfracture involving the mid to lower body of the patella. 4. Oblique tear involving the posterior horn medial meniscus. 5. Moderate joint effusion. Armando Newton MD Objective Remarks GENERAL: Well-developed well-nourished. In no acute distress. SKIN: Warm and dry. No lesions noted. HEENT: Normocephalic. Pupils equal and round. Mucous membranes pink and moist. CARDIOVASCULAR: Regular rate and rhythm. No murmur appreciated. RESPIRATORY: No accessory muscle use. Clear to auscultation. Breath sounds equal bilaterally. GASTROINTESTINAL: Abdomen soft, non-tender, nondistended. Bowel sounds x4. MUSCULOSKELETAL: Severe bilateral knee pain with minimal ROM. No significant effusion on exam. No clubbing or cyanosis. No edema. NEUROLOGICAL: Awake and alert. No focal neurological deficits. Moves upper and lower extremities spontaneously. Normal speech. PSYCHIATRIC: Appropriate mood and affect; insight and judgment normal. A/P Problem List: (1) Hyperlipidemia ICD Code: E78.5 - Hyperlipidemia, unspecified Status: Chronic (2) Hypertension ICD Code: I10 - Essential (primary) hypertension Status: Acute (3) Diabetes mellitus ICD Code: E11.9 - Type 2 diabetes mellitus without complications Status: Chronic (4) Bilateral knee pain ICD Code: M25.561 - Pain in right knee; M25.562 - Pain in left knee Status: Acute Assessment and Plan 82-year-old female with a history of hyperlipidemia, hypertension, diabetes mellitus who presented due to 2 week duration of bilateral knee pain. No erythema, swelling. Knee pain started suddenly. - Bilateral knee pain Reviewed: Lateral knee MRI show nondisplaced fractures of the lateral femoral condyles; joint effusions, bone marrow edema, microfractures, meniscal tears. - Pain management, continue Percocet 5-325 every 4 hours as needed, continue Dilaudid 0.5 mg 4 hours if needed for breakthrough. - Orthopedics consulted, recommended diclofenac, protected weightbearing, and outpatient follow-up - Bowel regimen PRN. - PT consulted, recommends SNF, case management arranging - UTI - UA with evidence of UTI. WBC mildly elevated. Afebrile. Urine culture growing Klebsiella. - Three-day course of Cipro based on sensitivities and patient's allergies. - Diabetes mellitus - Patient takes metformin at home which we'll hold for now. - We'll keep low sliding scale insulin on board. - Hypertension - chronic, better controlled today - Increased lisinopril to 40 mg daily - Added amlodipine 5 mg daily - IV Vasotec as needed - Monitor and adjust medications as needed - Hyperlipidemia - continue atorvastatin 20 mg by mouth daily at bedtime. DVT prophylaxis - Lovenox Discharge Planning The patient is medically stable at this time. Discharge planning to SNF when arranged. Problem Qualifiers (1) Hyperlipidemia: Qualified Codes: E78.5 - Hyperlipidemia, unspecified (2) Hypertension: Qualified Codes: I10 - Essential (primary) hypertension (3) Diabetes mellitus: (4) Bilateral knee pain: Qualified Codes: M25.561 - Pain in right knee; M25.562 - Pain in left knee Omid Lovett Feb 18, 2017 11:55
[2017-02-18 13:28] VITALS: BP 171/72; PULSE 73; RESP 16; TEMP 98; O2SAT 98
[2017-02-18] MEDS ORDERED: amLODIPine BESYLATE 5 MG TAB PO ONE (14:45)
[2017-02-18] MEDS ORDERED: CIPR250T52 PO (15:14)
[2017-02-18] MEDS ORDERED: DICL75TA PO (15:14)
[2017-02-18] MEDS ORDERED: OXYC1TAB63 PO (15:14)
[2017-02-18] MEDS ORDERED: AMLO10 PO (15:14)
[2017-02-18] MEDS ORDERED: LISI-515 PO (15:14)
[2017-02-18] MEDS ORDERED: FAMO20TA2 PO (15:15)
--- NOTE | 2017-02-18 15:21 | HHI.DS ---
Discharge Summary Admission Date Feb 16, 2017 at 11:34 Discharge Date: Feb 18, 2017 Admitting Diagnosis intractable knee pain (1) Hyperlipidemia ICD Code: E78.5 - Hyperlipidemia, unspecified Diagnosis: Secondary Status: Chronic (2) Hypertension ICD Code: I10 - Essential (primary) hypertension Diagnosis: Secondary Status: Acute (3) Diabetes mellitus ICD Code: E11.9 - Type 2 diabetes mellitus without complications Diagnosis: Secondary Status: Chronic (4) Bilateral knee pain ICD Code: M25.561 - Pain in right knee; M25.562 - Pain in left knee Diagnosis: Principal Status: Acute Procedures None Brief History - From Admission Ms. Parish is a pleasant 82-year-old female with a history of diabetes , hyperlipidemia, hypertension who presents to the emergency department on 2016 due to sharp knee pain bilaterally. About 2 weeks ago, patient experienced sudden onset of left-sided knee pain. Over time she started having right-sided knee pain as well. She reports no swelling of the knees, nor redness, no fever or chills. She saw her primary care doctor who obtained an x- ray which showed possible fluid. Patient was given Tylenol for symptomatic treatment. Later on she also received intra-articular steroid in her left knee. She has also tried NSAIDs including Motrin and meloxicam. None of these conservative management relieved her symptoms which prompted her to seek medical attention today. Additionally she feels her feet are numb. Patient denies any chest pain, shortness of breath, fever or chills. Denies any changes in bowel habits. However recently she did have frequent urination but no dysuria or hematuria. She has never had gout. CBC/BMP: 02/17/17201902/17/172019 Significant Findings Laboratory Tests Test 02/16/17 10:36 02/16/17 14:57 02/17/17 20:20 White Blood Count 14.0 TH/MM3 (4.0-11.0) 12.1 TH/MM3 (4.0-11.0) Red Blood Count 3.99 MIL/MM3 (4.00-5.30) 3.99 MIL/MM3 (4.00-5.30) Hemoglobin 11.4 GM/DL (11.6-15.3) 11.1 GM/DL (11.6-15.3) Hematocrit 34.1 % (35.0-46.0) 34.5 % (35.0-46.0) Neutrophils (%) (Auto) 71.5 % (16.0-70.0) Neutrophils # (Auto) 10.0 TH/MM3 (1.8-7.7) 8.0 TH/MM3 (1.8-7.7) Erythrocyte Sedimentation Rate 32 mm/hr (0-30) Blood Urea Nitrogen 26 MG/DL (7-18) 20 MG/DL (7-18) Random Glucose 141 MG/DL (74-106) 200 MG/DL (74-106) Chloride Level 110 MEQ/L (98-107) Estimat Glomerular Filtration Rate 57 ML/MIN (>89) 48 ML/MIN (>89) Uric Acid 7.1 MG/DL (2.6-6.0) Urine Turbidity HAZY (CLEAR) Urine Occult Blood TRACE (NEG) Urine Nitrite POS (NEG) Urine Leukocyte Esterase LARGE (NEG) Urine RBC 7 /hpf (0-3) Urine Bacteria MANY /hpf (NONE) Creatinine 1.09 MG/DL (0.50-1.00) Albumin 3.0 GM/DL (3.4-5.0) Calcium Level 8.3 MG/DL (8.5-10.1) Imaging Last Impressions Knee MRI 02/16/17 0000 Signed Impressions: Service Date/Time: Thursday, February 16, 2017 15:45 - CONCLUSION: 1. Nondisplaced fracture with bone marrow edema involving the lateral femoral condyle. 2. Bone marrow edema involving the lateral tibial plateau with cartilaginous defect along the articular surface. 3. Prominent bone marrow bruising and/or microfracture involving the mid to lower body of the patella. 4. Oblique tear involving the posterior horn medial meniscus. 5. Moderate joint effusion. Armando Newton MD PE at Discharge GENERAL: Well-developed well-nourished. In no acute distress. SKIN: Warm and dry. No lesions noted. HEENT: Normocephalic. Pupils equal and round. Mucous membranes pink and moist. CARDIOVASCULAR: Regular rate and rhythm. No murmur appreciated. RESPIRATORY: No accessory muscle use. Clear to auscultation. Breath sounds equal bilaterally. GASTROINTESTINAL: Abdomen soft, non-tender, nondistended. Bowel sounds x4. MUSCULOSKELETAL: Severe bilateral knee pain with minimal ROM. No significant effusion on exam. No clubbing or cyanosis. No edema. NEUROLOGICAL: Awake and alert. No focal neurological deficits. Moves upper and lower extremities spontaneously. Normal speech. PSYCHIATRIC: Appropriate mood and affect; insight and judgment normal. Pt update on day of discharge SNF placement arranged. BP has been labile and remains a bit elevated, amlodipine dose increased. Hospital Course 82-year-old female with a history of hyperlipidemia, hypertension, diabetes mellitus who presented due to 2 week duration of bilateral knee pain. No erythema, swelling. Knee pain started suddenly. - Bilateral knee pain Reviewed: Lateral knee MRI show nondisplaced fractures of the lateral femoral condyles; joint effusions, bone marrow edema, microfractures, meniscal tears. - Pain management, continue Percocet 5-325 every 4 hours as needed - Orthopedics consulted, recommended diclofenac, protected weightbearing, and outpatient follow-up - PT consulted, recommends SNF, case management arranged - UTI - UA with evidence of UTI. WBC mildly elevated. Afebrile. Urine culture growing Klebsiella. - Three-day course of Cipro based on sensitivities and patient's allergies. - Hypertension - Increased lisinopril to 40 mg daily - Added amlodipine 10 mg daily Pt Condition on Discharge: Stable Discharge Disposition: Discharge to SNF Discharge Time: > 30 minutes Discharge Instructions DIET: Follow Instructions for: Heart Healthy Diet, Diabetic Diet Activities you can perform: Regular-No Restrictions Follow up Referrals: Orthopedics - 3 Weeks with Sundeep Tomlinson MD PCP Follow-up - 2-3 Days New Medications: Amlodipine (Norvasc) 10 Mg Tab 10 MG PO DAILY for Blood Pressure Management, #30 TAB Ciprofloxacin (Cipro) 250 Mg Tab 250 MG PO Q12HR for UTI, #[address] (Diclofenac Sodium DR) 75 Mg Tabdr 75 MG PO Q12HR for Inflammation, #14 TAB Famotidine (Famotidine) 20 Mg Tab 10 MG PO BID for stomach protection, #14 TAB Lisinopril (Lisinopril) 20 Mg Tab 40 MG PO DAILY for Blood Pressure Management, #30 TAB Oxycodone-Acetaminophen (Oxycodone-Acetaminophen) 5-325 mg Tab 1 TAB PO Q4H PRN for PAIN SCALE 5 TO 10, #18 TAB Continued Medications: Atorvastatin (Atorvastatin) 20 Mg Tab 20 MG PO HS for Cholesterol Management, #30 TAB 0 Refills Metformin (Metformin) 1,000 Mg Tab 1000 MG PO BIDPC for Blood Sugar Management, #60 TAB 0 Refills 1 IN THE AM AND 1/2 AT NIGHT With meals Discontinued Medications: Lisinopril (Lisinopril) 20 Mg Tab 20 MG PO DAILY, #30 TAB 0 Refills Meloxicam (Mobic) 7.5 Mg Tab 7.5 MG PO DAILY for Pain, TAB 0 Refills Omid Lovett Feb 18, 2017 15:21
[2017-02-18] MEDS ORDERED: FAMOTIDINE 20 MG TAB PO SCH (21:00)
== END 2017-02-18 16:44 | disposition home or self-care (01) ==
LOC: NEPC 08:14 → NEDA 11:34 → NEPHCDU 12:50
PROVIDERS: ADMIT Family Medicine; ATTEND Family Medicine
DX: M25.561 Pain in right knee (principal); M25.562 Pain in left knee; S72.424A Nondisplaced fracture of lateral condyle of right femur, initial encounter for closed fracture; S72.425A Nondisplaced fracture of lateral condyle of left femur, initial encounter for closed fracture; S83.242A Other tear of medial meniscus, current injury, left knee, initial encounter; M25.462 Effusion, left knee; M25.461 Effusion, right knee; S83.241A Other tear of medial meniscus, current injury, right knee, initial encounter; M84.361A Stress fracture, right tibia, initial encounter for fracture; M84.362A Stress fracture, left tibia, initial encounter for fracture; N39.0 Urinary tract infection, site not specified; B96.1 Klebsiella pneumoniae [K. pneumoniae] as the cause of diseases classified elsewhere; R20.0 Anesthesia of skin; R60.0 Localized edema; I10 Essential (primary) hypertension; E78.5 Hyperlipidemia, unspecified; E78.00 Pure hypercholesterolemia, unspecified; E11.9 Type 2 diabetes mellitus without complications; M17.0 Bilateral primary osteoarthritis of knee; Z79.899 Other long term (current) drug therapy; Z79.84 Long term (current) use of oral hypoglycemic drugs; X58.XXXA Exposure to other specified factors, initial encounter
CPT/HCPCS: 73721; 80048; 80053; 81001; 82948; 84550; 85025; 85652; 86140; 87077; 87086; 87186; 96372; 96374; 96376; 97163; 99285; G0378; G8987; G8988; J1650; J1815